=== PATIENT | male | born 1995 | race African-American/Black ===

== ENCOUNTER 2019-02-14 16:36 | Emergency (ER) | payer OTHER ==
[~2019-02-14] VITALS: Ht 190.5 cm; Wt 86.4 kg
--- NOTE | 2019-02-14 17:25 | REP ---
Clinical: Trauma/injury . Technique: AP, lateral, bilateral oblique views left ankle . Findings: No acute fracture or dislocation. Skeletal structures and joint spaces are intact and normal. Ankle mortise appears stable. No subcutaneous emphysema or radiodense foreign body. Impression: Normal left ankle radiograph series. Electronically Signed by Bradley Hopkins MD 02/14/2019 05:16 P
[2019-02-14 17:51] VITALS: BP 125/75
== END 2019-02-14 17:52 | disposition home or self-care (01) ==
LOC: M ED 16:36
DX: S93.402A Sprain of unspecified ligament of left ankle, initial encounter (principal); W19.XXXA Unspecified fall, initial encounter; Y92.099 Unspecified place in other non-institutional residence as the place of occurrence of the external cause; Y93.02 Activity, running; Y99.9 Unspecified external cause status; Z72.0 Tobacco use

== ENCOUNTER 2019-03-26 11:10 | Emergency (ER) | payer OTHER ==
[~2019-03-26] VITALS: Ht 190.5 cm; Wt 88.4 kg
[2019-03-26] MEDS ORDERED: cefTRIAXone SOD 250 MG VIAL (J0696) IM ONE (13:45)
[2019-03-26] MEDS ORDERED: AZITHROMYCIN 250 MG TAB PO ONE (13:45)
[2019-03-26] MEDS ORDERED: LIDOCAINE 1% SDV 5 ML VIAL DILUENT ONE (13:45)
[2019-03-26 13:57] VITALS: BP 122/61
[2019-03-26 14:06] LABS: CHLAMYDIA DNA AMPLIFICATION POSITIVE (NEGATIVE); GC DNA AMPLIFICATION NEGATIVE (NEGATIVE)
== END 2019-03-26 14:07 | disposition home or self-care (01) ==
LOC: M ED 11:10
DX: Z20.2 Contact with and (suspected) exposure to infections with a predominantly sexual mode of transmission (principal); A74.9 Chlamydial infection, unspecified
CPT/HCPCS: 87491; 87591; 96372; 99283; J0696